=== PATIENT | female | born 1935 | race Caucasian/White ===

== ENCOUNTER 2017-08-12 10:00 | Outpatient (RCR) | payer OTHER ==
[~2017-08-12 10:00] MED LIST: ASPIRIN81 M1 PO; CALCIUM500 M1 PO; COQ-1030 MG PO; IMODIUM2 MG PO
== END 2017-08-14 | disposition home or self-care (01) ==
LOC: PTY 10:00
DX: M41.20 Other idiopathic scoliosis, site unspecified (principal); M54.5 Low back pain

== ENCOUNTER 2017-09-13 08:30 | Outpatient (RCR) | payer OTHER | END 2017-09-14 | disposition home or self-care (01) | LOC: PTY 08:30 | DX: M41.20 Other idiopathic scoliosis, site unspecified (principal); M54.5 Low back pain ==